=== PATIENT | female | born 2000 | race African-American/Black ===

== ENCOUNTER 2022-12-16 11:05 | Emergency (ER) | payer OTHER ==
[~2022-12-16] VITALS: Ht 162.6 cm; Wt 74.8 kg
== END 2022-12-16 13:21 | disposition home or self-care (01) ==
LOC: ER 11:05
DX: S61.411A Laceration without foreign body of right hand, initial encounter (principal); X58.XXXA Exposure to other specified factors, initial encounter; Y93.89 Activity, other specified; Y92.89 Other specified places as the place of occurrence of the external cause; Y99.9 Unspecified external cause status

== ENCOUNTER → 2023-04-11 | Emergency (ER) | payer OTHER ==
[~2023-04-11] VITALS: Ht 162.6 cm; Wt 68.0 kg
[~2023-04-11] MED LIST: BACTRIM DS TAB1 EACH PO
== END | disposition home or self-care (01) ==
LOC: ER 09:37
DX: N39.0 Urinary tract infection, site not specified (principal)